=== PATIENT | female | born 1980 | race Caucasian/White ===

== ENCOUNTER 2019-10-07 08:20 | Observation (INO) | payer BC, SELFPAY ==
[2019-10-07] VITALS (12 sets, daily range): BP systolic 112–136; BP diastolic 63–85; PULSE 64–96; RESP 14–20; TEMP 36.4–38.3; O2SAT 94–100; BMI 32.1
--- NOTE | 2019-10-07 | APP_PTH ---
PATIENT: GILBERT MOHR LOC: MS3 U#:[id number] AGE/SX: 39/F ROOM: [facility] RE10/07/[address]: Dr. Harrison Hargrove MD : 1980 BED: 1 DIS: 10/08/2019 SPEC #: [id number] RECD: 10/08/19 10:06 STATUS: NICHOLE [place] #: [id number] MARLINE: 10/07/19 00:[address]: Harrison Hargrove DEPT: SURGICAL PATHOLOGY RECD BY: Yonathan Thibodeaux ENTERED: 10/08/19 10:06 SP TYPE: APPENDIX OTHR DR: Dr. Bertram Mckeon MD Tissues: Appendix, NOS Procedures: Surgery Specimen Level III HEADER OPERATION: Laparoscopic appendectomy PRE-OP DIAGNOSIS: Acute appendicitis TISSUE SUBMITTED: Appendix MICROSCOPIC DIAGNOSIS Appendix, appendectomy: Acute necrotizing appendicitis. Acute serositis. AM:kavon 10/09/19 MICROSCOPIC DESCRIPTION Slides are reviewed. GROSS DESCRIPTION Received is one container labeled with the patient's name and designated appendix. The specimen consists of an L-shaped appendix measuring 9.5 cm in length and up to 1 cm in diameter. The serosal surface is congested. No obvious perforation is identified. Sections reveal the lumen contains hemorrhagic fecal material. No fecalith is identified. Block Hacker sections are submitted in one cassette. / SJ:rg 10/08/19 TC:2 CPT: 35672
--- NOTE | 2019-10-07 08:35 | US_ITS ---
STUDY: ABDOMINAL ULTRASOUND - RIGHT UPPER QUADRANT REASON FOR VISIT: Female, 39 years old RUQ PAIN TECHNIQUE: Ultrasound evaluation of the right upper quadrant was performed with real-time and static singh-scale imaging. TECHNICAL QUALITY: Adequate. COMPARISON: None. FINDINGS: Liver: The liver measures 18.4 cm. There is increased echogenicity consistent with fatty infiltration. The bile ducts are within normal limits. There is hepatic color flow. The direction of portal flow is hepatopetal. There is no demonstrated mass lesion. Gallbladder: Normal distended gallbladder. The gallbladder wall measures 2 mm. There is a negative sonographic Silvestre''s sign. There is no pericholecystic fluid. Echogenic material along the nondependent wall of the gallbladder which may represent tumefactive sludge or a polyp. Common Bile Duct (C.B.D.): The common bile duct measures 4 mm. Pancreas: Normal size of the head, body and tail of the pancreas. There is normal echogenicity of the pancreas. There is no demonstrated pancreatic mass or cyst. Right Kidney: Normal size of the right kidney. The right kidney measures 11.3 cm. Normal renal cortex. The right cortex measures 2.0 cm. There is no demonstrated renal mass or cyst. There is no right hydronephrosis. US/Gallbladder IMPRESSION: 1. Tumefactive sludge or polyps in the gallbladder. 2. Fatty infiltration of liver. Electronically Signed: Zheng Vail MD at 10:29 EDT Tel , Service support ,
--- NOTE | 2019-10-07 08:36 | ED.DCSUM_ITS ---
History of Present Illness Chief Complaint: Abd Pain Narrative: Patient is a 39-year-old female who presents with abdominal pain. She initially noted some discomfort in her right lower back yesterday morning. Last night after eating dinner which consisted of pizza rolls her pain worsened came around to the front she also developed a sensation of bloating. She developed nausea and dry heaving. She continued to have pain this morning and a little bit of dry heaving this morning. No fevers. No history of prior similar symptoms. No history of intolerance to fatty or greasy foods. No diarrhea. She has a prior history of section, no other abdominal surgeries. She currently rates her pain as a 6 or 7 out of 10. It is colicky and waxes and wanes. It is worse with laying flat. Past Medical History - Allergies and Home Meds Allergies/Adverse Reactions: Allergies No Known Allergies Allergy (Verified 10/07/19 08:22) Primary Care Physician: NOT,DEFINED [NON-STAFF] - Past Medical History: - - Depression Surgical History: - - section Smoking Status: Former smoker Review of Systems All systems negative except as indicated General: Denies: Fever Eyes: Denies: Visual changes - bilaterally ENT: Denies: Bilateral ear pain Cardiovascular: Denies: Chest pain Respiratory: Denies: Dyspnea Gastrointestinal: Reports: Abdominal pain, Nausea, Vomiting Musculoskeletal: Denies: Myalgias Skin: Denies: Rash Neurological: Denies: Headache Physical Exam Vital Signs/Narrative: Vital Signs Temp Pulse Resp BP Pulse Ox 10/07/19 08:22 97.5 F L 91 16 119/85 H 99 Inital Vital Signs reviewed: Yes General: Well nourished Head: Normocephalic Eyes: EOMI ENT: Moist mucous membranes Neck: Supple Cardiovascular: Regular rate, Regular rhythm Respiratory: No distress, CTA bilaterally Abdomen: Soft, Tender, Silvestre's sign, - - Patient has right upper quadrant tenderness with a positive Silvestre's sign she does not have guarding she does not have rebound she is nondistended Skin: Normal color Neurological: Alert Psychological: Normal affect Diagnostic/Tx/Re-eval Impressions Gallbladder Ultrasound 10/07/19 08:35 IMPRESSION: 1. Tumefactive sludge or polyps in the gallbladder. 2. Fatty infiltration of liver. Electronically Signed: Zheng Vail MD at 10:29 EDT Tel , Service support , 10/07/19 08:35 Gallbladder [US] Stat 10/07/19 11:13 CT Abd [Abdomen/Pelvis W IV Cont ONLY] [CT] Stat Laboratory Results 10/07/19 10/07/19 10/07/19 08:45 08:45 08:50 WBC 23.7 H RBC 4.47 Hgb 13.3 Hct 41.2 MCV 92.2 MCH 29.8 MCHC 32.3 RDW Std Deviation 41.2 RDW Coeff of Chang 12.4 Plt Count 339 MPV 9.5 Immature Gran % (Auto) 0.500 Neut % (Auto) 86.3 H Lymph % (Auto) 7.1 L [place] % (Auto) 5.8 Eos % (Auto) 0.0 Baso % (Auto) 0.3 Absolute Neuts (auto) 20.4 H Absolute Lymphs (auto) 1.67 Nucleated RBC % 0 Differential Comment COMMENT Sodium Potassium Chloride Carbon Dioxide Anion Gap BUN Creatinine Estim Creat Clear Calc Est GFR (MDRD) Af Amer Est GFR (MDRD) Non-Af BUN/Creatinine Ratio Glucose Calcium Total Bilirubin AST ALT Alkaline Phosphatase Total Protein Albumin Globulin Albumin/Globulin Ratio Lipase Urine Color Yellow Urine Clarity Sl. Cloudy Urine pH 6.5 Ur Specific [place] 1.015 Urine Protein 30 H Urine Glucose (UA) Normal Urine Ketones 15 H Urine Occult Blood 50 H Urine Nitrite Negative Urine Bilirubin Negative Urine Urobilinogen Normal Ur Leukocyte Esterase Negative Urine RBC 0-5 SEEN Urine WBC 0 SEEN Ur Squamous Epith Cells 0-5 SEEN Urine Bacteria 0 SEEN Urine Mucus 0 SEEN Urine Test Negative 10/07/19 08:50 WBC RBC Hgb Hct MCV MCH MCHC RDW Std Deviation RDW Coeff of Chang Plt Count MPV Immature Gran % (Auto) Neut % (Auto) Lymph % (Auto) [place] % (Auto) Eos % (Auto) Baso % (Auto) Absolute Neuts (auto) Absolute Lymphs (auto) Nucleated RBC % Differential Comment Sodium 138 Potassium 3.8 Chloride 106 Carbon Dioxide 25.0 Anion Gap 7 BUN 8 Creatinine 1.02 Estim Creat Clear Calc 65.97 Est GFR (MDRD) Af Amer 77 Est GFR (MDRD) Non-Af 64 BUN/Creatinine Ratio 7.8 L Glucose 124 H Calcium 9.0 Total Bilirubin 0.40 AST 16 ALT 29 Alkaline Phosphatase 110 Total Protein 7.6 Albumin 3.9 Globulin 3.7 Albumin/Globulin Ratio 1.1 Lipase 119 Urine Color Urine Clarity Urine pH Ur Specific [place] Urine Protein Urine Glucose (UA) Urine Ketones Urine Occult Blood Urine Nitrite Urine Bilirubin Urine Urobilinogen Ur Leukocyte Esterase Urine RBC Urine WBC Ur Squamous Epith Cells Urine Bacteria Urine Mucus Urine Test - Medical Decision Making Patient's initial clinical presentation is most concerning for cholecystitis. Patient was given IV fluids morphine and Zofran and is much more comfortable on reevaluation. Labs notable for white blood cell count of 23,700. LFTs and lipase are normal. Right upper quadrant ultrasound shows gallbladder sludge versus polyps but gallbladder wall is normal no pericholecystic fluid. Patient was empirically treated with IV Zosyn. I did discuss the patient with general surgery on-call given that the patient has normal LFTs and no pericholecystic fluid or gallbladder wall thickening felt to be unlikely to be due to cholecystitis. At this point did obtain CT imaging. On my review this shows findings consistent with retrocecal appendicitis. General surgery to see the patient in the emergency department. ED Disposition - Plan for ED Patient: Disposition: Acute Care [facility] Diagnosis: Appendicitis Referrals: NOT,DEFINED [NON-STAFF] -
[2019-10-07] MEDS: Ondansetron 4 MG/2 ML Vial IV (08:47)
[2019-10-07] MEDS: Morphine 4 MG/ML Syringe IV (08:47)
[2019-10-07] MEDS: 0.9% Normal Saline 1,000 ML 1000 ML IV (08:47)
[2019-10-07 09:02] LABS: Absolute Lymphocyte Count 1.67 X10^3/uL (0.83-4.51); Absolute Neutrophil Count 20.4 X10^3/uL (2.0-7.7); Basophil# 0.08 X10^3/uL; Basophil% 0.3 % (0-1); Eosinophil# 0.01 X10^3/uL; Hematocrit 41.2 % (37-47); Hemoglobin 13.3 g/dL (12.0-15.0); Lymphocyte # 1.67 X10^3/ul (4.0); Lymphocyte % 7.1 % (19-41); Mean Corp Hgb Conc 32.3 g/dL (32-36); Mean Corpuscular Hgb 29.8 pg (27.0-32.0); Mean Corpuscular Volume 92.2 fL (81-99); Mean Platelet Vol. 9.5 fl (6.2-12.0); Monocyte# 1.38 X10^3/uL; Monocyte% 5.8 % (0-10); NRBC Flagged by Analyzer 0 % (0-5); Neutrophil # 20.42 X10^3/uL (2.7-7.7); Neutrophil % 86.3 % (47-70); POSITIVE DIFFERENTIAL YES; Platelet Count 339 K/mm3 (150-450); RBC Distribution Width CV 12.4 % (11.6-14.6); RBC Distribution Width SD 41.2 fl (35.1-43.9); Red Blood Count 4.47 M/mm3 (4.2-5.4); White Blood Count 23.7 K/mm3 (4.4-11.0)
[2019-10-07 09:03] LABS: Internal QC Validated? YES +Cl - CLEAR BKGD; Pregnancy, Urine Negative Negative
[2019-10-07 09:05] LABS: Differential Indicated SCAN CRITERIA MET
[2019-10-07 09:15] LABS: ALB/GLOB Ratio 1.1 RATIO (0.9-2.4); AST(SGOT) 16 U/L (15-37); Alanine Aminotransfer ALT/SGPT 29 U/L (13-56); Albumin, Serum 3.9 g/dL (3.2-5.0); Alkaline Phosphatase 110 U/L (45-117); Anion Gap 7 (5-15); BUN 8 mg/dL (7-18); BUN/Creat Ratio 7.8 RATIO (10-20); Chloride 106 mmol/L (98-107); Creatinine, Serum 1.02 mg/dL (0.55-1.02); EST Glomerular Filtration Rate 64 mL/min (>60); Est Glom Filt Rate - Afr Amer 77 mL/min (>60); Estimated Creatinine Clearance 65.97 ml/min; Globulin 3.7 g/dL (2.2-4.2); Glucose 124 mg/dL (74-106); Lipase 119 U/L (73-393); Potassium 3.8 mmol/L (3.5-5.1); Protein, Total 7.6 g/dL (6.4-8.2); Sodium Level 138 mmol/L (136-145)
[2019-10-07 10:44] LABS: Bacteria 0 SEEN /hpf (None Seen); Mucous, Urine 0 SEEN /hpf (<or=2+); White Blood Cells 0 SEEN /hpf (0-5)
[2019-10-07 11:03] LABS: Color, Urine Yellow (Yellow); Glucose, Dipstick Normal (Normal); Ketone-Dipstick 15 mg/dl (Negative); Leukocyte Esterase-Dipstick Negative /ul (Negative); Nitrite-Dipstick Negative (Negative); Occult Blood-Urine 50 /ul (Negative); Protein-Dipstick 30 mg/dl (Negative); Specific Gravity, Urine 1.015 (1.002-1.030); Urine Bilirubin Dipstick Negative (Negative); Urine Clarity Sl. Cloudy (Clear); Urine Urobilinogen Normal (Normal); Urine pH 6.5 (5.0 - 8.0)
[2019-10-07 11:11] LABS: Red Blood Cells-Urine 0-5 SEEN /hpf (0-5); Squamous Epithelial Cells - UA 0-5 SEEN /hpf (5-10)
--- NOTE | 2019-10-07 11:12 | NURSING ---
DR Du BUTLER PAGED DR BUTLER CALLED BACK
--- NOTE | 2019-10-07 11:13 | CT_ITS ---
We are attempting to reach an attending provider to discuss findings. An addendum with communication details will be sent when the communication is complete. STUDY: CT ABDOMEN AND PELVIS WITH CONTRAST REASON FOR EXAM: Female, 39 years old. Right sided abdomen pain after eating last night, nausea/vomiting, elevated WBC. RADIATION DOSAGE (If Supplied By Facility): CTDIvol = ( 23.32 ) mGy, DLP = ( 1278.77 ) mGycm TECHNIQUE: Transaxial images were obtained from the dome of the diaphragm to the symphysis pubis without oral contrast. IV 100mL Isovue-300 was administered. Sagittal and coronal images were reconstructed. Individualized dose optimization techniques were used for this CT. COMPARISON: None. FINDINGS: The visualized lung bases are unremarkable. The visualized portions of the heart are within normal limits. Normal liver. Normal gallbladder and extrahepatic biliary system. Normal spleen. Normal pancreas. Normal bilateral adrenal glands. Normal right kidney. Normal left kidney. Normal visualized stomach. Normal small intestine. Normal colon. There is a tubular, thick-walled appendix (>7mm), consistent with acute appendicitis. No loculated fluid collection to suggest abscess. No pneumoperitoneum to suggest perforation. Normal abdominal aorta. Normal inferior vena cava. Normal retroperitoneum. Normal urinary bladder. Normal abdominal wall. Normal osseous structures. CT/Abdomen/Pelvis W IV Cont ONLY IMPRESSION: Acute appendicitis without abscess or perforation. Electronically Signed: Zheng Vail MD at 12:01 EDT Tel , Service support ,
--- NOTE | 2019-10-07 13:16 | NURSING ---
DR Du BUTLER IN ROOM
--- NOTE | 2019-10-07 13:25 | PCM.HP.STD ---
Problem List (1) Appendicitis Status: Acute Qualifiers: Appendicitis type: acute appendicitis Appendicitis gangrene presence: without gangrene Appendicitis perforation presence: unspecified whether perforation present Appendicitis abscess presence: unspecified whether abscess present History of Present Illness Date of Admission: 10/07/19 The patient is a 39 year old F who presents to the emergency room with a 2-day history of abdominal pain. I was contacted earlier today by Dr. Olmstead concerned that the patient had acute cholecystitis. He states that the patient had fatty food intolerance nausea and vomiting and right upper quadrant pain. The patient had a white count of 23,000. However gallbladder ultrasound was not remarkable. Liver function tests were normal. And so was elected to pursue a CT scan at my request. The CT scan shows acute severe appendicitis. The patient has had a previous . No other additional abdominal surgery. Past Medical History Allergies No Known Allergies Allergy (Verified 10/07/19 08:22) Home Medications: Ambulatory Orders Medication Instructions Recorded Sertraline HCl [Zoloft] 50 mg PO DAILY 10/07/19 Surgical History: - - section Smoking Status: Former smoker Review of Systems Constitutional: Denies: Fever Cardiovascular: Denies: Chest Pain Respiratory: Denies: Shortness of Breath Gastrointestinal: Reports: Nausea, Vomiting Endocrine: Denies: Change in Body Habitus VTE Information - Inpt Only VTE Present on Admission: No Patient Problems: Active and Suspected Problems Appendicitis (Acute) - Physical Exam Vitals/I&O's: Vital Signs Temp Pulse Resp BP Pulse Ox 97.5 F L 82 16 114/66 99 10/07/19 08:22 10/07/19 11:42 10/07/19 11:42 10/07/19 11:42 10/07/19 11:42 Oxygen Delivery Method Room Air Weight: 193 lb Body Mass Index (BMI) 32.1 Intake and Output for Last 24 Hours 10/05/19 10/06/19 10/07/19 23:59 23:59 23:59 Intake Total 1100 / 1100 Balance 1100 / 1100 General: Alert, Oriented x3, Cooperative, No apparent distress HEENT: Atraumatic Oral: Moist Mucosa Lungs: Clear to auscultation, Normal air movement Cardiovascular: Regular rate, Regular Rhythm Abdomen: Soft, Bowel Sounds Not Present, Distended, - - Notably tender to palpation right lower quadrant with guarding and rebound Extremities: No Calf Tenderness Neurological: - - Cognition intact Psych/Mental Status: Normal Affect Laboratory Results 10/07/19 08:45: Urine Test Negative 10/07/19 08:45: Urine Color Yellow, Urine Clarity Sl. Cloudy, Urine pH 6.5, Ur Specific [place] 1.015, Urine Protein 30 H, Urine Glucose (UA) Normal, Urine Ketones 15 H, Urine Occult Blood 50 H, Urine Nitrite Negative, Urine Bilirubin Negative, Urine Urobilinogen Normal, Ur Leukocyte Esterase Negative, Urine RBC 0-5 SEEN, Urine WBC 0 SEEN, Ur Squamous Epith Cells 0-5 SEEN, Urine Bacteria 0 SEEN, Urine Mucus 0 SEEN 10/07/19 08:50: WBC 23.7 H, RBC 4.47, Hgb 13.3, Hct 41.2, MCV 92.2, MCH 29.8, MCHC 32.3, RDW Std Deviation 41.2, RDW Coeff of Chang 12.4, Plt Count 339, MPV 9.5, Immature Gran % (Auto) 0.500, Neut % (Auto) 86.3 H, Lymph % (Auto) 7.1 L, [place] % (Auto) 5.8, Eos % (Auto) 0.0, Baso % (Auto) 0.3, Absolute Neuts (auto) 20.4 H, Absolute Lymphs (auto) 1.67, Nucleated RBC % 0, Differential Comment COMMENT 10/07/19 08:50: Sodium 138, Potassium 3.8, Chloride 106, Carbon Dioxide 25.0, Anion Gap 7, BUN 8, Creatinine 1.02, Estim Creat Clear Calc 65.97, Est GFR (MDRD) Af Amer 77, Est GFR (MDRD) Non-Af 64, BUN/Creatinine Ratio 7.8 L, Glucose 124 H, Calcium 9.0, Total Bilirubin 0.40, AST 16, ALT 29, Alkaline Phosphatase 110, Total Protein 7.6, Albumin 3.9, Globulin 3.7, Albumin/Globulin Ratio 1.1, Lipase 119 Assessment/Plan All Active Problems Appendicitis (Acute) I have personally performed a clinical exam and reviewed her CT scan. Findings are consistent with severe acute appendicitis. I have recommended to the patient a laparoscopic appendectomy with possible conversion to an open approach if indicated. I discussed the technique, benefit, risk, alternatives. The degree of swelling of the appendix is very remarkable. I do not believe that nonoperative management will be effective here. She has had an opportunity to ask and have questions answered. We will proceed as OR timing permits. Harrison Hargrove M.D., F.A.C.S.
[2019-10-07] MEDS: Lactated Ringers 1,000 ML 100 ML IV ×2 (14:05→16:47)
--- NOTE | 2019-10-07 14:47 | PCM.DC.GS ---
<Harrison Hargrove - Last Filed: 10/07/19 14:47> Discharge Diet: Light diet - advance as tolerated - if you have questions about your diet instructions, please talk to you doctor. Discharge Activity: May Not Drive - for 3-5 days or while taking narcotic pain medicine. May shower in (days): 1 Lifting Restrictions: 10 pounds Call your doctor if your incision/area has: Continuous Slow Oozing, Sudden Increased Bleeding, Increased Pain/ Swelling, Increased Redness, Foul Smelling Discharge Call your doctor if you observe: Fever of 101 or Higher Suture Line Care: Avoid Pulling/Pushing, Avoid Pinching/Bending Additional Dressing/Incision Instructions:: Change or remove dressing in 3 days. Leave steri-strips in place for 1 week. Allergies/Adverse Reactions: Allergies No Known Allergies Allergy (Verified 10/07/19 14:06) Medications to take at Discharge Sertraline HCl [Zoloft] 50 mg PO QHS 10/07/19 Oxycodone [Oxyir] 10 mg PO Q6H PRN PRN 3 Days #18 tab 10/08/19 The following prescriptions were given: Oxycodone [Oxyir] 10 mg PO Q6H PRN PRN 3 Days #18 tab PRN Reason: Pain Score 6-10/10 Transmission Status: Received by [facility]/pharmacy #[id number] Primary Care Physician: NOT,DEFINED [NON-STAFF] - Test Results: Test results from this visit will be discussed in further detail at your follow-up appointment, if applicable. Please Follow Up With: Harrison Hargrove MD - [phone] When: Call to make an appointment to be seen in about 10 days. <Johanny Fagan - Last Filed: 10/08/19 12:08> Test Results: Test results from this visit will be discussed in further detail at your follow-up appointment, if applicable. Please Follow Up With: Johanny Fagan PA-C When: Call to make a telephone follow-up visit for about 10 days. Proposed Discharge Date: 10/08/19
--- NOTE | 2019-10-07 15:35 | PCM.OPRPT ---
Problem List (1) Appendicitis Status: Acute Qualifiers: Appendicitis type: acute appendicitis Appendicitis gangrene presence: without gangrene Appendicitis perforation presence: unspecified whether perforation present Appendicitis abscess presence: unspecified whether abscess present Report of Operation Date of Procedure: 10/07/19 Pre-Operative Diagnosis: Appendicitis Post-Operative Diagnosis: Acute appendicitis Surgery/Procedure Performed:: Laparoscopic appendectomy Description of Surgical Findings:: Timeout and informed consent was obtained. 39-year-old female taken out from placement table underwent general endotracheal intubation esthesia. She had received therapeutic Zosyn in the emergency room. The abdomen was sterilely prepped and draped. 0.5% Marcaine was used as local anesthetic. Throughout the procedure a total of 30 cc was used. Skin sites were pre-anesthetized. A vertical infraumbilical incision was created holding sutures of 0 Vicryl placed varies needle inserted saline drop test performed the abdomen was insufflated with CO2 to a pressure of 10 mmHg pressure. 10 mm trocar was inserted. 10 mm laparoscope inserted. No concern trocar injuries. On direct physician 5 mm trochars were placed suprapubically in the low mid abdomen. Inspection revealed acute appendicitis with appendix densely adherent to the ascending colon. A window was made in the mesoappendix flush with the cecum. A standard height 45 mm stapler was used to transect the appendix flush with the cecum. Then a vascular 8 stapler was used to transect the mesoappendix. Hemostasis was intact. The appendix was placed in a retrieval bag. It was exited at the umbilicus. The fascia at the umbilicus was approximated with a iamqyl-rp-bnquf suture using a GraNee needle and 0 Vicryl. Patient is obese with significant adiposity at the umbilical level making a grainy needle safer means of approach. I then reinforced that with a jkozgq-we-tpgli suture externally of 0 Vicryl by lifting up the abdominal wall. The abdomen was allowed to deflate of the CO2 through an antiviral port. Skin edges approximated opted for Monocryl subdermal stitches. Steri-Strips and Telfa and OpSite dressings were applied. Sponge and instrument and needle counts were reported to the surgeon to be correct. Blood loss minimal. Specimens appendix. Drains none. Blood loss minimal. Harrison Hargrove M.D., F.A.C.S. Type of Anesthesia:: General Anesthesiologist: Artur Garcia
[2019-10-07] MEDS: Bupivacaine Mpf 0.5% 30 ML VIAL (15:42)
[2019-10-07] MEDS: Lactated Ringers 1,000 ML 70 ML IV (18:48)
[2019-10-07] MEDS: 0.9% Saline Lock 10 ML Syringe IV (18:54)
[2019-10-07] MEDS: oxyCODONE 5 MG Tablet PO (21:34)
[2019-10-08] VITALS (7 sets, daily range): BP systolic 100–114; BP diastolic 60–73; PULSE 81–97; RESP 16–18; TEMP 36.6–36.8; O2SAT 88–99
[2019-10-08] MEDS: oxyCODONE 5 MG Tablet PO ×3 (04:57→15:19)
--- NOTE | 2019-10-08 05:07 | NURSING ---
Patient ambulated in hallway, 3/4 of a lap around unit.
--- NOTE | 2019-10-08 06:49 | PN.SURG_ITS ---
Patient Problems: Active and Suspected Problems Appendicitis (Acute) Subjective: Patient complains of 7 out of 10 right mid abdominal pain. No nausea or vomiting. No flatus - Physical Exam Vitals/I&O's: Vital Signs Temp Pulse Resp BP Pulse Ox 97.9 F 91 18 106/63 94 10/08/19 04:49 10/08/19 04:49 10/08/19 04:49 10/08/19 04:49 10/08/19 06:35 Oxygen Flow Rate (L/min) 1 Oxygen Delivery Method Nasal Cannula Weight: 193 lb Body Mass Index (BMI) 32.1 Intake and Output for Last 24 Hours 10/06/19 10/07/19 10/08/19 23:59 23:59 23:59 Intake Total 2441.92 / 2941.92 500 / 500 Output Total 350 / 850 500 / 500 Balance 2091.92 / 2091.92 0 / 0 Abdomen: Soft, Hypoactive Bowel Sounds - Incisions are clean and dry, abdomen is appropriately tender Microbiology Past 72 Hours 10/07/19 11:40 Mucosa - Nasopharyngeal Coronavirus COVID-19 PCR - Final Laboratory Results 10/07/19 08:45: Urine Test Negative 10/07/19 08:45: Urine Color Yellow, Urine Clarity Sl. Cloudy, Urine pH 6.5, Ur Specific [place] 1.015, Urine Protein 30 H, Urine Glucose (UA) Normal, Urine Ketones 15 H, Urine Occult Blood 50 H, Urine Nitrite Negative, Urine Bilirubin Negative, Urine Urobilinogen Normal, Ur Leukocyte Esterase Negative, Urine RBC 0-5 SEEN, Urine WBC 0 SEEN, Ur Squamous Epith Cells 0-5 SEEN, Urine Bacteria 0 SEEN, Urine Mucus 0 SEEN 10/07/19 08:50: WBC 23.7 H, RBC 4.47, Hgb 13.3, Hct 41.2, MCV 92.2, MCH 29.8, MCHC 32.3, RDW Std Deviation 41.2, RDW Coeff of Chang 12.4, Plt Count 339, MPV 9.5, Immature Gran % (Auto) 0.500, Neut % (Auto) 86.3 H, Lymph % (Auto) 7.1 L, [place] % (Auto) 5.8, Eos % (Auto) 0.0, Baso % (Auto) 0.3, Absolute Neuts (auto) 20.4 H, Absolute Lymphs (auto) 1.67, Nucleated RBC % 0, Differential Comment COMMENT 10/07/19 08:50: Sodium 138, Potassium 3.8, Chloride 106, Carbon Dioxide 25.0, Anion Gap 7, BUN 8, Creatinine 1.02, Estim Creat Clear Calc 65.97, Est GFR (MDRD) Af Amer 77, Est GFR (MDRD) Non-Af 64, BUN/Creatinine Ratio 7.8 L, Glucose 124 H, Calcium 9.0, Total Bilirubin 0.40, AST 16, ALT 29, Alkaline Phosphatase 110, Total Protein 7.6, Albumin 3.9, Globulin 3.7, Albumin/Globulin Ratio 1.1, Lipase 119 Current Medications Acetaminophen (Tylenol) 650 mg PO Q6H PRN PRN PRN Reason: Pain Score 1-10/10 Lactated Ringer's () 1,000 mls @ 30 mls/hr IV .[id number] BEN Last Infusion: 10/07/19 23:09 Dose: 70 mls/hr Documented by: Sodium Chloride () 250 mls @ 15 mls/hr IV .[id number] PRN PRN Reason: Saline Flush Last Infusion: 10/07/19 18:49 Dose: 0 mls/hr Documented by: Morphine Sulfate () 2 - 4 mg IV Q1H PRN PRN PRN Reason: Pain Score 1-10/10 Morphine Sulfate () 2 - 4 mg IV Q1H PRN PRN PRN Reason: Pain Score 1-10/10 Ondansetron HCl (Zofran) 4 mg IV Q8H PRN PRN PRN Reason: NAUSEA Oxycodone HCl (Oxyir) 5 - 10 mg PO Q4H PRN PRN PRN Reason: Pain Score 6-10/10 Last Admin: 10/08/19 04:57 Dose: 10 mg Documented by: Sertraline HCl (Zoloft) 50 mg PO DAILY [facility] Sodium Chloride () 10 - 40 ml IV UD PRN PRN Reason: SALINE FLUSH Last Admin: 10/07/19 18:54 Dose: 10 ml Documented by: Medical Necessity - Tobacco Use Smoking Status: Former smoker Tobacco Use: Cigarettes Assessment/Plan All Active Problems Appendicitis (Acute) Patient was reassured. She will initiate mobilization. I will advance to a full liquid diet. Anticipate discharge today.
[2019-10-08] MEDS: Sertraline 50 MG Tablet PO (10:11)
--- NOTE | 2019-10-08 13:51 | NURSING ---
Pt notified of d/c- states it will have to be around 1800. Tolerating fulls-- but requesting chicken broth and jello for lunch- same given. Requesting to take shower prior to d/c closer to 1800. Again encouraged to walk in hallways- understanding verbalized. Denies questions or further needs.
--- NOTE | 2019-10-08 17:51 | NURSING ---
Patient preparing to be discharged and reports that she is feeling hot and requested temperature to be taken. This RN took pt's temp and was 100.1. Dr. Hargrove notified of same and ordered Augmentin 875mg PO x1 now, and then requested a prescription be called to patient's pharmacy of Augmentin 875mg PO BID x5 days (10 tabs). Also, patient is to call office first thing in the morning. Patient notified of same. [facility] called. This RN spoke with pharmacist- Understanding verbalized and prescription preparation at pharmacy in progress.
[2019-10-08] MEDS: Amox/Clavulanate 875 MG Tablet PO (17:59)
== END 2019-10-08 18:02 | disposition home or self-care (01) ==
LOC: ED 12:46 → SDC 13:27 → AC 13:29 → MS3 14:02 → SDC 16:11 → MS3 16:11
PROVIDERS: Admitting Provider Surgery; Emergency Provider Emergency Medicine; PCP Family Medicine; Visit Provider Surgery
PROC: 0DTJ4ZZ Resection of Appendix, Percutaneous Endoscopic Approach (ICD-10-PCS; CPT 44970; principal; 2019-10-07 14:15)
DX: K35.891 Other acute appendicitis without perforation, with gangrene (principal); F32.9 Major depressive disorder, single episode, unspecified; Z79.899 Other long term (current) drug therapy; Z87.891 Personal history of nicotine dependence; K21.9 Gastro-esophageal reflux disease without esophagitis
CPT/HCPCS: 00840; 44970; 74177; 76705; 80053; 81001; 81025; 83690; 85025; 87635; 88304; 96361; 96365; 96366; 96375; 99218; 99251; 99282; G2023; J7030; J7050; J7120; Q9967; A4216; G0378; G0463; J2405; U0004

== ENCOUNTER 2020-11-30 17:05 | Outpatient (CLI) | payer BC, SELFPAY ==
[2019-10-07 13:29] VITALS: BMI 32.1
[2020-11-30 17:18] VITALS: BP 123/71; PULSE 109; TEMP 36.7; O2SAT 98
[2020-11-30 17:26] VITALS: BMI 36.5
--- NOTE | 2020-11-30 18:53 | OB.TRI.NOTE ---
HPI - General HPI Narrative GILBERT MOHR, is a 40 at 32.4 weeks that was sent over from office due to variables on NST. Patient had BPP today which was 12/25. Physician sent patient for extended monitoring on L&D. Patient denies any cramping or contractions, loss of fluid or vaginal bleeding. Positive movement. Maternal Data Information CHARLA Calculator Estimated Delivery Date Method Current WG Current Estimate 01/21/21 Manual 32w 4d PFSH PFSH Home Medications sertraline 50 mg PO QHS 10/07/19 [History Last Taken 11/29/20 20:00] Allergy/AdvReac Type Severity Reaction Status Date / Time No Known Allergies Allergy Verified 11/30/20 17:27 Social History Smoking Status: Former smoker History Elective abortions Hx Para 0 Spontaneous abortions Hx # Term Pregnancies Ectopic pregnancies Hx # Pregnancies Multiple births # of living children ROS Eyes Eyes: Denies blurry vision Cardiovascular Cardiovascular: Reports none; Denies chest pain at rest, chest pain with activity or dizziness Respiratory/Chest Respiratory/Chest: Denies cough or dyspnea Gastrointestinal Gastrointestinal: Reports none and other; Denies diarrhea or vomiting Genitourinary Genitourinary: Denies dysuria Musculoskeletal Musculoskeletal: Reports none Integumentary Integumentary: Reports none; Denies rash Neurologic Neurologic: Denies dizziness, headache(s) or other visual disturbances Psychiatric Psychiatric: Reports none Physical Exam Const alert and no apparent distress General Appearance: cooperative Orientation / Consciousness: awake Exam Limitations: no limitations HEENT normocephalic Eyes General Eye: normal appearance of both eyes Neck full ROM Chest inspection of chest normal Resp normal respiratory effort and normal air movement Effort and Inspection: symmetric chest movement Auscultation: clear to auscultation bilaterally Cardio regular rate GI soft to palpation, non-tender and non-distended Inspection: and other Back/Spine normal ROM Extremity full ROM, normal capillary refill and no calf tenderness Skin no rashes or lesions noted Neuro oriented x3 and CN's II-XII intact bilaterally Psych mental status grossly normal NST FHR Rate Baby A Baseline: 145 Variability:: Moderate Accelerations:: 15 x 15 Decelerations:: Variable (2 noted on strip) NST Reactive:: Yes Assessment & Plan (1) 32 weeks gestation of : (2) Variable heart rate decelerations, antepartum: PLAN: CEFM NST reactive- overall reassuring 2 variables noted on strip and strip reviewed by DM Discharge home with follow up in office Saturday for NST
== END 2020-11-30 19:02 | disposition home or self-care (01) ==
LOC: WPOUT 17:10 → WP 17:11
PROVIDERS: PCP Family Medicine; Visit Provider Advanced Practice Midwife
DX: O36.8330 Maternal care for abnormalities of the fetal heart rate or rhythm, third trimester, not applicable or unspecified (principal); O09.523 Supervision of elderly multigravida, third trimester; Z3A.32 32 weeks gestation of pregnancy; Z87.891 Personal history of nicotine dependence
CPT/HCPCS: 59025; 59050

== ENCOUNTER 2020-12-27 12:45 | Outpatient (CLI) | payer BC, SELFPAY ==
[2020-12-27 13:05] VITALS: BP 122/73; PULSE 98; TEMP 36.7; O2SAT 97
[2020-12-27 13:06] VITALS: BP 122/73; PULSE 90
[2020-12-27 13:14] VITALS: BMI 37.5
--- NOTE | 2020-12-27 14:38 | OB.TRI.NOTE ---
HPI - General HPI Narrative GILBERT MOHR, is a 40 F @ 36.3 weeks who presents from office for prolonged monitoring due to BPP 6/8. was seen in office had 2 small variables on NST- BPP performed which was 6/8 for breathing. MFM recommended monitoring and then dc home if stable. Maternal Data Information CHARLA Calculator Estimated Delivery Date Method Current WG Current Estimate 01/21/21 Manual 36w 3d PFSH PFSH Home Medications sertraline 50 mg PO QHS 10/07/19 [History Last Taken 12/26/20 22:00] aspirin [Baby Aspirin] 81 mg PO DAILY 12/27/20 [History Last Taken 12/26/20 22:00] ferrous sulfate [Iron (ferrous sulfate)] 325 mg PO DAILY 12/27/20 [History Last Taken 12/26/20 22:00] pren vit comb.1-iron cb-FA-DSS 1 tab PO DAILY 12/27/20 [History Last Taken 12/26/20 22:00] Allergy/AdvReac Type Severity Reaction Status Date / Time No Known Allergies Allergy Verified 11/30/20 17:27 Social History Smoking Status: Former smoker History Elective abortions Hx Para 0 Spontaneous abortions Hx # Term Pregnancies Ectopic pregnancies Hx # Pregnancies Multiple births # of living children NST FHR Rate Baby A Baseline: 140 Variability:: Moderate Accelerations:: 15 x 15 Decelerations:: None NST Reactive:: Yes FHR Category:: Category I Uterine Activity:: q3-5 min Assessment & Plan (1) AMA (advanced maternal age) multigravida 35+: (2) NST (non-stress test) reactive on surveillance: PLAN: 40yo @ 36.3 weeks, BPP 6/8, NST reactive, cat 1- well being established. 1) tracing reviewed- dc home - follow up as scheduled or prn. 2) Kick counts
== END 2020-12-27 14:38 | disposition home or self-care (01) ==
LOC: WPOUT 12:53 → WP 12:54
PROVIDERS: PCP Family Medicine; Visit Provider Obstetrics & Gynecology
DX: Z36.89 Encounter for other specified antenatal screening (principal); O09.523 Supervision of elderly multigravida, third trimester; Z3A.36 36 weeks gestation of pregnancy; Z87.891 Personal history of nicotine dependence
CPT/HCPCS: 59025; 59050; 99218; G0378

== ENCOUNTER 2021-01-16 09:30 | Inpatient (IN) | payer BC, SELFPAY ==
[2019-10-07 13:29] VITALS: BMI 32.1
[2021-01-16] VITALS (20 sets, daily range): BP systolic 119–146; BP diastolic 68–95; PULSE 77–89; RESP 12–22; TEMP 36.2–36.6; O2SAT 96–100; BMI 39.4
--- NOTE | 2021-01-16 07:59 | PCM.HP.BLA ---
History and Physical Date of Admission: 01/16/21 Expand AllCollapse All Expand All by Default Hide copied text Unruly for details Pre-Op History and Physical ? HPI: The patient is a 40 year old female presenting for pre-operative visit. She is scheduled for and bilateral salpignectomy, for elective repeat cs and desires sterilization. on . Procedure discussed along with risks, benefits and complications. Other alternatives discussed for management. Consent form signed? Yes. ? ? PAST MEDICAL HISTORY PAST MEDICAL HISTORY Diagnosis Date ? Anemia ? ? Anxiety ? ? anxiety ? ? Environmental allergies ? ? Meniere's disease ? ? depression ? ? ? PAST SURGICAL HISTORY PAST SURGICAL HISTORY Procedure Laterality Date ? APPENDECTOMY ? ? ? 2020 ? DELIVERY ONLY ? 12/27/2014 ? , low transverse ? REMOVAL OF TONSILS,<12 Y/O ? ? ? Tonsillectomy ? ? ? CURRENT MEDICATIONS Current Outpatient Medications Medication Sig Dispense Refill ? aspirin, enteric coated (ASPIRIN LOW DOSE) 81 mg EC tablet Take 81 mg by mouth once daily. ? ? ? sertraline (ZOLOFT) 50 mg tablet Take 1 tablet by mouth once daily. 10 tablet 1 ? ferrous sulfate 325 mg (65 mg iron) tablet Take 325 mg by mouth daily with breakfast. ? ? ? VIT/IRON FUMARATE/FA ( ORAL) Take by mouth. ? ? ? No current facility-administered medications for this visit. ? ? ALLERGIES: Dust, Environmental [Other], and Seasonal [Other] ? PERSONAL HISTORY: SOCIAL HISTORY Social History ? Tobacco Use ? Smoking status: Former Smoker ? ? Years: 2.00 ? ? Quit date: 04/19/2014 ? ? Years since quittin.7 ? Smokeless tobacco: Never Used ? Tobacco comment: social smoker in past Substance Use Topics ? Alcohol use: Yes ? ? Comment: Seldom, not while ? Drug use: No ? FAMILY HISTORY: FAMILY HISTORY FAMILY HISTORY Problem Relation Age of Onset ? No Known Problems Mother ? ? Heart Father ? ? Hypertension Father ? ? other (meniere's) Father ? ? Hypertension Sister ? ? No Known Problems Brother ? ? No Known Problems Maternal Grandmother ? ? Heart Maternal Grandfather ? ? Aneurysm Paternal Grandmother ? ? Heart Attack Paternal Grandfather ? ? No Known Problems Daughter ? ? other (OVARIAN CANCER) Other ? ? MATERNAL GREAT GRANDMOTHER ? Prostate Cancer Other ? ? MATERNAL GREAT GRANDFATHER ? ? REVIEW OF SYMPTOMS: negative except as noted above PHYSICAL EXAMINATION: ? VITALS: Blood pressure 124/76, weight 229 lb (103.9 kg), last menstrual period 04/16/2020. ? GENERAL: The patient is well nourished, well hydrated in no acute distress. , The patient is oriented to time, place, and person. NECK: full range of motion NEURO: A&O x 3 Abd: gravid,non tender ? IMPRESSION: 40yo @ 39.2 weeks gestation previous cs, desires sterilization ? PLAN: Repeat cs and Bilateral salpingectomy ? Pt has been counseled on risks/benefits and alternatives of surgery including but not limited to anesthesia, bleeding, infection, injury to pelvic structures including bowel, bladder, ureters and vessels. Pt wishes to proceed with surgery at this time. Pt understands salpingectomy is irreversible - pt agrees and wishes to proceed. ? I have reviewed and updated past medical and surgical history, medications and allergies Stephanie King MD ?7:49 AM Routine Office Visit on 01/11/2021 Routine Office Visit on 01/11/2021 Note shared with patient
[2021-01-16] MEDS: Lactated Ringers 1,000 ML 999 ML IV (10:00)
[2021-01-16 10:08] LABS: Absolute Neutrophil Count 8.5 X10^3/uL (2.0-7.7); Basophil# 0.05 X10^3/uL; Basophil% 0.4 % (0-1); Eosinophil# 0.24 X10^3/uL; Eosinophils% 2.1 % (0-5); Hematocrit 31.9 % (37-47); Hemoglobin 10.3 g/dL (12.0-15.0); Lymphocyte % 15.8 % (19-41); Mean Corp Hgb Conc 32.3 g/dL (32-36); Mean Corpuscular Hgb 27.3 pg (27.0-32.0); Mean Corpuscular Volume 84.6 fL (81-99); Mean Platelet Vol. 10.2 fl (6.2-12.0); Monocyte# 0.74 X10^3/uL; Monocyte% 6.5 % (0-10); NRBC Flagged by Analyzer 0 % (0-5); Neutrophil # 8.45 X10^3/uL (2.7-7.7); Platelet Count 250 K/mm3 (150-450); RBC Distribution Width CV 16.3 % (11.6-14.6); Red Blood Count 3.77 M/mm3 (4.2-5.4); White Blood Count 11.4 K/mm3 (4.4-11.0)
[2021-01-16] MEDS: Acetaminophen 500 MG Tablet 1000 MG PO ×3 (10:51→23:37)
[2021-01-16] MEDS: Lactated Ringers 1,000 ML 150 ML IV (10:53)
[2021-01-16] MEDS: Cefazolin 2 GM in 0.9% Normal Saline 100 ML IV (11:54)
[2021-01-16] MEDS: Sodium Citrate/Citric Acid 30 ML UDC PO (11:54)
--- NOTE | 2021-01-16 12:26 | FALS_PTH ---
PATIENT: GILBERT MOHR LOC: [facility] U#:[id number] AGE/SX: 40/F ROOM: WP009 RE01/16/[address]: Dr. Stephanie Phillips, MDDOB: 1980 BED: 1 DIS: 01/17/2021 SPEC #: [id number] RECD: 01/16/21 14:00 STATUS: NICHOLE [place] #: [id number] MARLINE: 01/16/21 12:[address]: Stephanie Phillips DEPT: SURGICAL PATHOLOGY RECD BY: Jennifer Merrill ENTERED: 01/17/21 08:59 SP TYPE: FALL TUBES OTHR DR: Dr. Bertram Mckeon MD Tissues: Fallopian tube Procedures: Surgery Specimen Level II HEADER OPERATION: Tubal ligation PRE-OP DIAGNOSIS: Sterilization TISSUE SUBMITTED: Fallopian tubes MICROSCOPIC DIAGNOSIS Bilateral fallopian tubes, salpingectomy: Bilateral fallopian tubes, no pathologic diagnosis. SAVANNAH:kavon 01/18/2021 MICROSCOPIC DESCRIPTION Slides are reviewed. GROSS DESCRIPTION Received in fixative is one container labeled with the patient's name and designated bilateral fallopian tubes, left with stitch. The specimen consists of bilateral fallopian tubes including fimbrial ends. The right fallopian tube measures 6.5 cm in length and 0.8 cm in diameter and the left fallopian tube measures 6 cm in length and 0.8 cm in diameter. Both fallopian tubes are congested. Sections reveal unremarkable cut surfaces. Storm Window Installer sections are submitted in two cassettes as follows: 1 - right fallopian tube, 2 - left fallopian tube. / Abdirahman 01/17/21 TC:4 CPT: 55280 x2
--- NOTE | 2021-01-16 12:58 | OP.PCM_ITS ---
Assessment & Plan (1) Delivery by section: Maternal Data Information CHARLA Calculator Estimated Delivery Date Method Current WG Current Estimate 01/21/21 Manual 39w 2d Details Operative Information Date of Procedure: 01/16/21 Pre-Operative Diagnosis: term gestation, previous cs, desires sterilization, AMA Post-Operative Diagnosis: same, live male infant Indications for : Repeat Elective and Desires elective sterilization Classification: Scheduled Procedure Type: low transverse (and Bilateral salpingectomy ) emergency services dispatcher #1: Aime Waters emergency services dispatcher #2: [id number] Type of Anesthesia: Spinal Antibiotic Given: Ancef 2 grams IV x1 Estimated Blood Loss: 700 Fluids Replaced: 1500 Procedure Start Time: :22 Procedure Stop Time: 13:04 Time of Delivery: : Findings Description of Procedure: After informed consent was obtained the patient was taken to the operating room she was given spinal anesthesia. sHe was placed in the supine position. She was then prepped and draped in normal sterile fashion. Once spinal anesthesia was found to be adequate skin incision was made with a scalpel in a Pfannenstiel fashion. It was carried down to the underlying layer of the fascia. Fascia was then incised midline with scapel and extended laterally using curved horton. 2 straight Afton's were placed in the superior aspect of the fascial edge and the rectus muscles were dissected off [bluntly]. Attention was then turned to the inferior aspect where again the fascial edge was grasped with 2 straight Senia clamps tented up and the rectus muscle dissected off [bluntly]. At this time the rectus muscles were grasped in the midline using 2 Allis clamps and scalpel was used to separate the rectus muscles. Using blunt force the peritoneum was then entered. Metzenbaums were used to take down the rectus muscles inferiorly as well as the peritoneum. At this time the vesicouterine peritoneum was identified. Uterine incision was made in a low transverse fashion with the scalpel and then entered bluntly. Gentle opposing traction was placed to extend the uterine incision. The membranes were ruptured amniotic fluid clear. Infant's head was then brought to the uterine incision was delivered atraumatically followed by the rest 's body. At this time delayed cord clamping was performed mouth nose were suctio michaela. was then handed to the waiting nursery team. The placenta was then removed with gentle traction. The uterus was removed from the intra-abdominal cavity is wrapped in a moist lap. it was cleared of all clots and debris using a moist lap. Ring clamps were placed on the uterine angles. #1 Vicryl suture was used in a running locked fashion for the first layer. Followed by second layer with #1 Vicryl in figure of eight fashion. Tubes and ovaries were evaluated they were normal. The tubes were grasped in an avascular area with the [place] ligasure used to clamp,seal and cut along mesosalpinx to remove entire tube. the uterus was then placed back in the abdominal cavity and this was repeated on the left. gutters were cleared of clots Great hemostasis was appreciated at this time the uterine incision was again evaluated good hemostasis was appreciated. Jake placed. The peritoneum and muscle were grasped with Kellys. Peritoneum was reapproximated using #2 Vicryl suture in a running fashion. jake placed. The fascia was then reapproximated using #1 PDS in a running fashion. Subcutaneous layer was evaluated and Bovie was used for any small oozing that was noted per #2-0 plain gut suture was then used to reapproximate the subcutaneous layer 4-0 monocryl was used to reapproximate the skin in a subcutaneous fashion. Dry sterile dressing was applied. Instrument lap needle count were correct ?2. Anticipated normal postoperative course for this patient. no qualified resident available to peform procedure. Presentation: Positive for Vertex Amniotic Membrane Rupture Type: Artificial Amniotic Fluid Description: Clear Placental Delivery Description: Expressed Placenta Disposition: [facility] Specimen(s) Sent to Pathology: none Cord Vessel Description: 3 Vessels Cord Entanglement: Around neck x 1, loose Nuchal Cord Compression: Without compression A Gender: Male (1 minute): 8 (5 minute): 9 Delayed Cord Clamping: Yes Complications Risks of Surgery Discussed w/Patient: Bleeding, Anesthesia Risks, Infection, Permanency, Injury to surrounding structure(s) including bowel and bladder and Availability of other non-permanent control options Complications: none Admit VTE Documentation VTE Present on Admission: Yes VTE Mechan Device Prophylaxis: SCD's VTE Pharm Prophylaxis Ordered: Yes
[2021-01-16] MEDS: Oxytocin 30 units/NS 500 ml 30 UNITS/500 ML IV.SOLN 167 UNITS IV (13:57)
[2021-01-16 14:01] LABS: Pathology Specimen OB SEE PATHOLOGY REPORT
[2021-01-16] MEDS: Ketorolac 30 MG/ML Syringe IV ×2 (14:20→19:40)
[2021-01-16] MEDS: Lactated Ringers 1,000 ML 100 ML IV (16:32)
[2021-01-16] MEDS: Sertraline 50 MG Tablet PO (21:55)
[2021-01-17] VITALS (10 sets, daily range): BP systolic 126–141; BP diastolic 70–78; PULSE 80–98; RESP 16–18; TEMP 36.2–36.7; O2SAT 96–98
[2021-01-17] MEDS: Enoxaparin 40 MG/0.4 ML Syringe SC (00:59)
[2021-01-17] MEDS: Ketorolac 30 MG/ML Syringe IV ×2 (02:33→07:59)
[2021-01-17] MEDS: 0.9% Saline Lock 10 ML Syringe IV ×2 (02:33→07:59)
[2021-01-17] MEDS: Acetaminophen 500 MG Tablet 1000 MG PO ×2 (05:14→11:07)
[2021-01-17 05:32] LABS: Hematocrit 29.3 % (37-47); Hemoglobin 9.3 g/dL (12.0-15.0); Mean Corp Hgb Conc 31.7 g/dL (32-36); Mean Corpuscular Hgb 27.5 pg (27.0-32.0); Mean Corpuscular Volume 86.7 fL (81-99); Mean Platelet Vol. 9.8 fl (6.2-12.0); Platelet Count 220 K/mm3 (150-450); RBC Distribution Width CV 16.1 % (11.6-14.6); RBC Distribution Width SD 50.7 fl (35.1-43.9); Red Blood Count 3.38 M/mm3 (4.2-5.4); White Blood Count 13.4 K/mm3 (4.4-11.0)
--- NOTE | 2021-01-17 08:30 | PCM.PN.OB ---
Subjective Subjective patient seen at bedside, doing well. Patient reports good pain control. lochia mild. passing flatus, tolerating regular diet. Objective Data Objective Data Vital Signs: Vital Signs Temp Pulse Resp BP Pulse Ox 97.2 F L 82 16 138/70 H 96 01/17/21 08:00 01/17/21 08:00 01/17/21 08:08 01/17/21 08:00 01/17/21 08:00 Oxygen Delivery Method Room Air Weight: 104.3 kg Body Mass Index (BMI) 39.4 Intake & Output: Intake and Output for Last 24 Hours 01/15/21 01/16/21 01/17/21 23:59 23:59 23:59 Intake Total 3952.5 / 3952.5 830 / 830 Output Total 500 / 500 915 / 915 Balance 3452.5 / 3452.5 -85 / -85 Lab / Micro Data Result Diagrams: 01/17/21 05:20 Labs: Laboratory Results - last 24 hr 01/16/21 09:50: WBC 11.4 H, RBC 3.77 L, Hgb 10.3 L, Hct 31.9 L, MCV 84.6, MCH 27.3, MCHC 32.3, RDW Std Deviation 50.0 H, RDW Coeff of Chang 16.3 H, Plt Count 250, MPV 10.2, Immature Gran % (Auto) 1.200 H, Neut % (Auto) 74.0 H, Lymph % (Auto) 15.8 L, [place] % (Auto) 6.5, Eos % (Auto) 2.1, Baso % (Auto) 0.4, Absolute Neuts (auto) 8.5 H, Absolute Lymphs (auto) 1.80, Nucleated RBC % 0 01/16/21 09:50: Blood Type B POSITIVE, Antibody Screen NEGATIVE 01/17/21 05:20: WBC 13.4 H, RBC 3.38 L, Hgb 9.3 L, Hct 29.3 L, MCV 86.7, MCH 27.5, MCHC 31.7 L, RDW Std Deviation 50.7 H, RDW Coeff of Chang 16.1 H, Plt Count 220, MPV 9.8 Physical Exam Narrative dressing dry and intact. Const alert and oriented x3 General Appearance: cooperative HEENT normocephalic Neck General: normal visual inspection GI soft to palpation and non-distended GI Narrative: Fundus firm Extremity normal to inspection and no calf tenderness Skin no rashes or lesions noted Neuro oriented x3 and CN's II-XII intact bilaterally Psych mental status grossly normal Assessment & Plan (1) Delivery by section: PLAN: POD# 1 , Doing well Routine care pain mgmt monitor VS ambulation jose alberto oconnell
--- NOTE | 2021-01-17 08:32 | PCM.DC ---
Discharge Instructions Diet Discharge Diet: No restrictions Activity May resume sexual activity in: 6-8 weeks Lifting Restrictions: 25 Dressing / Incision Call your doctor if your incision/area has: Continuous Slow Oozing, Sudden Increased Bleeding, Increased Pain/ Swelling, Increased Redness, Foul Smelling Discharge and Swelling at the incision site Call your doctor if you observe: Fever of 101 or Higher, Inability to urinate, Using more than 1 pad per hour and Uncontrolled pain Additional Dressing/Incision Instructions:: remove dressing at 7 days post op- if it becomes saturated prior to that time you may remove it. Let soap and water run over incision sites and dab dry. keep incision clean and dry. Follow Up Care Please Follow Up With: Stephanie Phillips MD When: 1-2 weeks post of incision check and again at 6 weeks post . [phone] Test Results: Test results from this visit will be discussed in further detail at your follow-up appointment, if applicable. Discharge Plan Admission Admit Date/Time: 01/16/21 09:30 Attending Provider: Stephanie Phillips Primary Care Provider: Bertram Mckeon Discharge Orders/Prescriptions Prescriptions: New acetaminophen 500 mg Tablet 1,000 mg PO Q6H Qty: 30 RF: 0 ibuprofen 600 mg Tablet 600 mg PO Q6H Qty: 30 RF: 0 simethicone [Mi-Acid Gas Relief(simethicon)] 80 mg Tablet,Chewable 80 mg PO PCHS PRN (Reason: Indigestion/stomach pain) Qty: 20 RF: 0 Continued sertraline 50 MG tablet 50 mg PO QHS RF: 0 famotidine [Pepcid] 20 mg Tablet 20 mg PO QHS RF: 0 ferrous sulfate [Iron (ferrous sulfate)] 325 mg (65 mg iron) Tablet 325 mg PO DAILY RF: 0 pren vit comb.1-iron cb-FA-DSS 90-1-50 mg Tablet 1 tab PO DAILY RF: 0 Discontinued aspirin [Baby Aspirin] 81 mg Tablet,Chewable 81 mg PO DAILY RF: 0 Referrals / Follow Up: Bertram Mckeon MD [Primary Care Provider] - Disposition Disposition (needs filled in before D/C Order can be placed): Home, Self Care
[2021-01-17] MEDS: Senna/Docusate Sodium 1 Tablet PO (11:08)
--- NOTE | 2021-01-17 11:51 | CM.ED ---
Home Teaching Grades 9 Thru 12 Teacher Note Referral Source: MD Referral Reason: History of anxiety, depression and Post depression SW met with patient and her and son in their room. Patient gave verbal consent to talk to her in the presence of her . FOB was holding the during the interview. Patient was noted to be smiling when talking about . Mom: Trina G/P: PNC: [facility] Control: Tubal Ligation Per chart patient began her PNC at 8 weeks Baby: Lenore Faye 01/16/21 Apgars: 8/9 Shoe Ironer: Jessica Jefferson Bottle Feeding Other Children: Sravanthi age 6 (same mother and father as ) Housing: Patient and her and children reside in [place] Transportation: Patient reports she has access to transportation Supplies: Patient and FOB confirmed they have all supplies including carseat, diapers, bassinet, crib and clothes Education: Patient graduated from High School. No learning issues or delays Employment: Patient reports that she is employed at [employer]. 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 Patient plans to take 12 + weeks off (using her vacation time to take additional time off). Patient said that the will go to her older daughter archie (in home) when patient returns to work. Agency Involvement: None Support: Patient reports her support is her , Kurt and her stepmother and father who live not to far. FOB: Vikram Time Together: Together 15 years, for 12 years Involved at : FOB reports he will be involved with and he was observed to be holding and bonding with the . Employment: [employer]EP Father will take 2 weeks off work to be home with patient and . Other children: Sinai, age 6 FOB Mental Health/AOD/Domestic Violence: FOB reports none Maternal MH history: Patient said that she has had anxiety in the past and was on mediation but when she was with older child she went off medication and felt she was doing fine. Patient said that after she had Sinai she had anxiety real bad. She said that she would watch Sinai sleep and watch her sleep as she was fearful something would happen to her. Patient said that her delivery with Sravanthi was also traumatic as it was unscheduled c section. Patient said that she took medication when experiencing these symptom. Patient is currently planning to continue her medication, Zoloft 50 mg. Patient said that this is the delivery was scheduled and this is a 2nd child so she knows more of what to expect with a as well as being currently on medication. Patient looked content, happy and comfortable. Patient reports she is looking forward to taking a shower and going home. Patient denied any SI/HI. Patient and FOB educated on post depression, shaken baby syndrome and safe sleeping. Patient reports no AOD history or drug use. No further issues or concerns voiced by patient and FOB. SW spoke to Ellie GIBSON who reported no issues or concerns. Patient given depression support packet which includes 10 facts about depression and anxiety in preganancy and post , depression and anxiety symptoms with Post Support and warmline contact, [facility] Mothers of Newborns information, depression checklist and on line resource, back to sleep, Help Me Grow, Counseling Resources and on line website support for anxiety and depression. Plan: Home with Liana Avery MONI Bahena
[2021-01-17] MEDS: Ibuprofen 600 MG Tablet PO (14:33)
--- NOTE | 2021-01-17 16:20 | PCM.DC.BLA ---
Discharge Summary Date of Admission: 01/16/21 Date of Discharge: 01/17/21 Summary: pt was admitted for scheduled Cs at 39.2 weeks gestation. pt had uncomplicated repeat LTCS and salpingectomy - normal post op course and was discharged home in stable condition on POD#1. Meaningful Use Info Meaningful Use Diagnoses (Choose all that apply): None applicable Discharge Plan Admission Admit Date/Time: 01/16/21 09:30 Attending Provider: Stephanie Phillips Primary Care Provider: Bertram Mckeon Discharge Orders/Prescriptions Prescriptions: New acetaminophen 500 mg Tablet 1,000 mg PO Q6H Qty: 30 RF: 0 ibuprofen 600 mg Tablet 600 mg PO Q6H Qty: 30 RF: 0 simethicone [Mi-Acid Gas Relief(simethicon)] 80 mg Tablet,Chewable 80 mg PO PCHS PRN (Reason: Indigestion/stomach pain) Qty: 20 RF: 0 Continued sertraline 50 MG tablet 50 mg PO QHS RF: 0 famotidine [Pepcid] 20 mg Tablet 20 mg PO QHS RF: 0 ferrous sulfate [Iron (ferrous sulfate)] 325 mg (65 mg iron) Tablet 325 mg PO DAILY RF: 0 pren vit comb.1-iron cb-FA-DSS 90-1-50 mg Tablet 1 tab PO DAILY RF: 0 Discontinued aspirin [Baby Aspirin] 81 mg Tablet,Chewable 81 mg PO DAILY RF: 0 Referrals / Follow Up: Bertram Mckeon MD [Primary Care Provider] - Disposition Disposition (needs filled in before D/C Order can be placed): Home, Self Care
== END 2021-01-17 18:50 | disposition home or self-care (01) | DRG 785 ==
PROVIDERS: Admitting Provider Obstetrics & Gynecology; PCP Family Medicine; Visit Provider Obstetrics & Gynecology
PROC: 10D00Z1 Extraction of Products of Conception, Low, Open Approach (ICD-10-PCS; CPT 59514; principal; 2021-01-16 11:45)
DX: O34.211 Maternal care for low transverse scar from previous cesarean delivery (principal); Z30.2 Encounter for sterilization; Z37.0 Single live birth; O99.344 Other mental disorders complicating childbirth; F41.9 Anxiety disorder, unspecified; Z3A.39 39 weeks gestation of pregnancy; Z79.899 Other long term (current) drug therapy; Z87.891 Personal history of nicotine dependence; O69.81X0 Labor and delivery complicated by cord around neck, without compression, not applicable or unspecified
CPT/HCPCS: 85025; 85027; 86850; 86900; 86901; 88302; 99218; 99251; J7120; A4216; G0378; G0463